=== PATIENT | female | born 1950 | race Caucasian/White ===

== ENCOUNTER 2018-02-19 06:02 | Inpatient (IN) ==
[2018-02-19] MEDS ORDERED: Metoprolol Tartrate 25 MG Tablet PO ONE (06:53)
[2018-02-19] MEDS ORDERED: Chlorhexidine Gluconate 2% 1 Pack (2 Cloths) TOPICAL ONE (06:53)
[2018-02-19] MEDS ORDERED: Sodium Chlor 0.9% Inj 500 ML IV.SIG SCH (07:00)
--- NOTE | 2018-02-19 10:21 | P.HPVS ---
History of Present Illness Chief Complaint: LEFT foot rest pain, PAD History of Present Illness: 67 yo female with L LE rest pain and PAD. Presents for groin reconstruction and angiogram. No changes in health that would preclude OR today. - Inpatient Certification If this patient has been admitted as an Inpatient: I certify that the inpatient services were ordered in accordance with Medicare regulations governing the order. This includes certification that hospital inpatient services are reasonable and necessary and in the case of services not specified as inpatient-only under 42 CFR 419.22(n), that they are appropriately provided as inpatient services in accordance to with the 2-midnight benchmark under 43 CFR 412.3(e) Estimated Total Length of Stay (Days): 3 Plans for Post Hospital Care: SNF Review of Systems Constitutional: Denies chills, Denies fever(s) PMFSH - History History Provided By: Patient, Medical Record - Medical History Medical History: Medical History (Last Reviewed 02/19/18 @ 10:19 by Jason Boone MD) Cataract Embolism Emphysema of lung Insomnia Psoriasis Arthritis At maximum risk for fall COPD (chronic obstructive pulmonary disease) GERD (gastroesophageal reflux disease) History of heart attack History of uterine cancer Hx of completed stroke Hypokalemia Hypothyroid Incontinence of urine Major depressive disorder PVD (peripheral vascular disease) Spastic hemiplegia and hemiparesis Surgical history unknown Unspecified convulsions Urticaria - Surgical History Surgical History: Surgical History (Last Reviewed 02/19/18 @ 10:19 by Jason Boone MD) H/O carotid endarterectomy Hx of vascular surgery - Tobacco History Second Hand Smoke Exposure: Yes Tobacco Use In Past 30 Days: Yes Smoking Status: Current every day smoker Tobacco Type: Cigarettes - Alcohol History How Often Do You Have a Drink Containing Alcohol: Never - Substance Use History Substance History: No History of Abuse - Travel History Recent Travel in the [place] Within the Last 8 Weeks: No Recent Travel Out of the Country Within the Last 8 Weeks: No Medications and Allergies Active Medications: Active Medications Lactated Ringer's (Lr 1000 Ml Inj) 1,000 mls @ 30 mls/hr IV.SIG .Q24H C[facility] Stop: 02/20/18 06:59 Last Admin: 02/19/18 07:10 Dose: 30 mls/hr Sodium Chloride (Ns Inj) 500 mls @ 30 mls/hr IV.SIG .Q10H C[facility] Allergies Allergy/AdvReac Type Severity Reaction Status Date / Time erythromycin base Allergy Hives Verified 02/19/18 06:57 Macrolide Antibiotics Allergy Hives Verified 02/19/18 06:57 Penicillins Allergy Hives Verified 02/19/18 06:57 Sulfa (Sulfonamide Allergy Hives Verified 02/19/18 06:57 Antibiotics) codeine AdvReac Nausea Verified 02/19/18 06:57 Home Medications Medication Instructions Recorded Confirmed Type acetaminophen [Tylenol] 650 mg PO Q4H PRN 02/13/18 02/19/18 History atorvastatin 20 mg PO DAILY 02/13/18 02/19/18 History calcium carbonate-vitamin D3 1 tab PO BID 02/13/18 02/19/18 History [Calcium 500 + D] citalopram [Celexa] 10 mg PO DAILY 02/13/18 02/19/18 History clopidogrel [Plavix] 75 mg PO DAILY 02/13/18 02/19/18 History diphenhydramine HCl [Benadryl Itch 1 applic TOPICAL TID-QID PRN 02/13/18 History Stopping] fenofibrate micronized 200 mg PO DAILY 02/13/18 02/19/18 History furosemide 20 mg PO DAILY 02/13/18 02/19/18 History gabapentin 300 mg PO BID 02/13/18 02/19/18 History hydrocodone-acetaminophen 1 tab PO Q8HR PRN 02/13/18 02/19/18 History levetiracetam 500 mg PO BID 02/13/18 02/19/18 History levothyroxine 25 mcg PO DAILY 02/13/18 02/19/18 History loratadine 10 mg PO DAILY 02/13/18 02/19/18 History lorazepam 0.5 mg PO BID PRN 02/13/18 02/19/18 History polyethylene glycol 3350 [Miralax] 17 g PO DAILY 02/13/18 02/19/18 History potassium chloride 10 meq PO DAILY 02/13/18 02/19/18 History tizanidine 4 mg PO BID 02/13/18 02/19/18 History zolpidem [Ambien] 5 mg PO HS 02/13/18 02/19/18 History bisacodyl 5 mg PO DAILY 02/19/18 02/19/18 History calcipotriene 1 applic TOPICAL DAILY 02/19/18 02/19/18 History clobetasol 1 applic TOPICAL BID PRN 02/19/18 02/19/18 History Physical Exam Vital Signs / I&O: Vital Signs 02/19/18 07:00 Temperature 98.4 F Pulse Rate 56 L Respiratory Rate 18 Blood Pressure 127/53 L Intake & Output 02/18/18 02/19/18 02/19/18 18:59 06:59 18:59 Weight 67.1 kg Other: Weight On Admission 67.1 kg Neuro: alert, mild agitation because hungry HEENT: NC/AT Neck: no JVD Heart: reg rate Lungs: clear Abdomen: NT Vascular: L groin without ecchymoses Laboratory Results - last 24 hr 02/19/18 06:40 Blood Type A Positive Blood Type Recheck Required Antibody Screen Negative Hct 44 plt 305 cr 1.0 INR 1.0 UA negative Caprini VTE Risk Assessment Caprini VTE Risk Assessment: Moderate/High Risk (score >= 2) (will give intraop heparin and post-op prophylactic heparin) Caprini Risk Assessment Model: Point Value = 1 Point Value = 2 Point Value = 3 Point Value = 5 Age 41-60 Minor surgery BMI > 25 kg/m2 Swollen legs Varicose veins or History of unexplained or recurrent spontaneous Oral contraceptives or hormone replacement Sepsis (< 1 month) Serious lung disease, including pneumonia (< 1 month) Abnormal pulmonary function Acute myocardial infarction Congestive heart failure (< 1 month) History of inflammatory bowel disease Medical patient at bed rest Age 61-74 Arthroscopic surgery Major open surgery (> 45 min) Laparoscopic surgery (> 45 min) Malignancy Confined to bed (> 72 hours) Immobilizing plaster cast Central venous access Age >= 75 History of VTE Family history of VTE Factor V Leiden Prothrombin [id number] Lupus anticoagulant Anticardiolipin antibodies Elevated serum homocysteine Heparin-induced thrombocytopenia Other congenital or acquired thrombophilia Stroke (< 1 month) Elective arthroplasty Hip, pelvis, or leg fracture Acute spinal cord injury (< 1 month) Prophylaxis Regimen: Total Risk Factor Score Risk Level Prophylaxis Regimen 0-1 Low Early ambulation 2 Moderate Order ONE of the following: *Sequential Compression Device (SCD) *Heparin 5000 units SQ BID 3-4 Higher Order ONE of the following medications: *Heparin 5000 units SQ TID *Enoxaparin/Lovenox 40 mg SQ daily (WT < 150 kg, CrCl > 30 mL/min) *Enoxaparin/Lovenox 30 mg SQ daily (WT < 150 kg, CrCl > 10-29 mL/min) *Enoxaparin/Lovenox 30 mg SQ BID (WT < 150 kg, CrCl > 30 mL/min) AND/OR *Sequential Compression Device (SCD) 5 or more Highest Order ONE of the following medications: *Heparin 5000 units SQ TID (Preferred with Epidurals) *Enoxaparin/Lovenox 40 mg SQ daily (WT < 150 kg, CrCl > 30 mL/min) *Enoxaparin/Lovenox 30 mg SQ daily (WT < 150 kg, CrCl > 10-29 mL/min) *Enoxaparin/Lovenox 30 mg SQ BID (WT < 150 kg, CrCl > 30 mL/min) AND *Sequential Compression Device (SCD) Assessment and Plan - Assessment (1) PAD (peripheral artery disease) Code(s): I73.9 - Peripheral vascular disease, unspecified Status: Acute - Plan LEFT groin reconstruction and angiogram To OR Daughter coming later today: [phone]
[2018-02-19] MEDS ORDERED: Heparin 10,000 UNITS/10 ML Vial (for IV use) ONE (10:23)
[2018-02-19] MEDS ORDERED: Bupivacaine PF 0.5% Inj 10 ML Vial ONE (10:23)
[2018-02-19] MEDS ORDERED: Protamine Sulfate Inj 50 MG/5 ML Vial ONE (10:23)
[2018-02-19] MEDS ORDERED: Heparin/NS PF Inj 500 ML ONE (10:24)
[2018-02-19] MEDS ORDERED: Phenylephrine/NS 1000 MCG/10ML Syringe IV.PUSH ONE (10:38)
[2018-02-19] MEDS ORDERED: Lidocaine PF 1% Inj 5 ML Syringe OTHER ONE (10:38)
[2018-02-19] MEDS ORDERED: Glycopyrrolate Inj 1 MG/5 ML Syringe IV.PUSH ONE (10:38)
[2018-02-19] MEDS ORDERED: Neostigmine Inj 5 MG/5 ML Syringe IV.PUSH ONE (10:38)
[2018-02-19] MEDS ORDERED: Thrombin Topical 20,000 UNIT Spray Kit TOPICAL ONE (11:00)
[2018-02-19] MEDS ORDERED: Bisacodyl 10 MG Supp RECTAL PRN (13:36)
--- NOTE | 2018-02-19 13:36 | P.OP ---
- Preoperative Diagnosis (1) PAD (peripheral artery disease) - Postoperative Diagnosis (1) PAD (peripheral artery disease) Date of procedure: 02/19/18 Procedure: 1. L ilioprofunda bypass 2. L BORDER PATROL AGENT-SFA bypass Implants: 6mm Dacron Anesthesia: GETA Surgeon: Jason Boone MD [employer] Driver: Jason Hays Estimated blood loss (mL): 150 IV fluids (mL): 2,000 Urine output (mL): 325 Pathology: none sent Operation and Findings: very small arteries strong signals in DP at end of case
[2018-02-19] MEDS ORDERED: CLOBETASOL 0.025% TOPICAL PRN (14:30)
[2018-02-19] MEDS ORDERED: diphenhydrAMINE 2%/Zinc Cream 30 GM Tube TOPICAL PRN (14:30)
[2018-02-19] MEDS ORDERED: fentaNYL Citrate Inj 100 MCG/2 ML Ampul ONE ×2 (14:36)
--- NOTE | 2018-02-19 14:52 | MP ---
cc: Jason Boone MD DATE OF OPERATION: 02/19/2018 PREOPERATIVE DIAGNOSIS: Left lower extremity rest pain and peripheral screws. POSTOPERATIVE DIAGNOSIS: Left lower extremity rest pain and peripheral screws. PROCEDURE PERFORMED: 1. Ilioprofunda bypass with 6 mm Dacron. 2. Common femoral to superficial femoral artery bypass with 6 mm Dacron. SURGEON: Jason Boone MD ANESTHESIA: General. INDICATIONS FOR PROCEDURE: Ms. Archer is a 67-year-old lady with ischemic rest pain and diminished ALEJO's. She was taken to the operating room for groin reconstruction. DESCRIPTION OF PROCEDURE: Informed consent was obtained from the patient. She was taken to the operating room and placed supine on the operating table. An appropriate timeout was taken to ensure the patient's identity, the operative site and planned procedure. A gram of vancomycin prior to skin incision and will be discontinued after single preoperative dose. Vancomycin was chosen because of the patient's PENICILLIN ALLERGY. Everyone in the room agreed with timeout and we proceeded. She was prepped from her nipples to toes. A vertical incision was made in the patient's left groin and carried down through subcutaneous tissue with electrocautery. The inguinal ligament was divided and the retractors were set out. The external iliac artery was circumferentially dissected and a vessel loop was placed around this. The profunda was dissected free. The entire common femoral artery and the SFA. The patient was heparinized with 6000 units of IV heparin. Throughout the remainder of the case. The ACT was confirmed to be greater than 250. Proximal control of the external iliac artery and distal control of the profunda and SFA were obtained. The common femoral artery and its entire bifurcation were resected. The external iliac artery was endarterectomized and spatulated and a 6 mm Dacron was spatulated and sewn end-to-end with running 6-0 Prolene suture. The patient was felt to be hemostatic. A clamp was placed on the graft. The profunda was spatulated, endarterectomized and the anastomosis performed with profunda with running 6-0 Prolene suture. The clamps released and there was a nice palpable pulse in the profunda. Clamps were applied on the Dacron and the longitudinal graftotomy was made with an 11 blade, extended with [place] scissors. The 6 mm Dacron second piece was then spatulated and sewn end-to-side with running 5-0 Prolene suture. At the completion, it was flushed and noted to be hemostatic. The clamp was then placed in the jump graft and it was spatulated distally and sewn end-to-end to the superficial femoral artery with running 6-0 Prolene suture. At the completion, it was flushed, found to be hemostatic. All 4 anastomoses were hemostatic and there was a strong Doppler signal in the foot. The heparin was reversed with protamine. The wound was infiltrated with Marcaine. The wound was made hemostatic and closed with 2-0 Polysorb, 3-0 Polysorb and 4-0 Monocryl. Sponge and needle counts were correct at the end of the case. I was present and scrubbed for the entire procedure. MD DOMINGA Spencer/ines/cassidy , 01:43 PM , 01:51 PM CHRIS
[2018-02-19] MEDS ORDERED: *morphine SULFATE 4 MG/ML PERIprocedure ONLY ONE (15:04)
--- NOTE | 2018-02-19 18:06 | XR ---
EXAM DATE: 02/19/2018 5:59 PM EST AGE/SEX: 67 years / Female INDICATIONS: Short of breath post operation. CLINICAL DATA: This is the patient's initial encounter. Patient reports that signs and symptoms have been present for 1 day and indicates a pain score of 0/10. MEDICAL/SURGICAL HISTORY: Cardiovascular disease. None. [place] [facility] [place]. . FINDINGS: Mild prominence of the interstitium. Trace basilar atelectasis. No pleural effusion demonstrated. No pneumothorax. Heart size stable upper limits of normal. CONCLUSION: Trace pulmonary edema and basilar atelectasis. Electronically signed by: Rico Dunbar MD 02/19/2018 6:04 PM EST
[2018-02-19] MEDS: Gabapentin 300 MG Capsule PO SCH (20:09)
[2018-02-19] MEDS: Zolpidem Tartrate 5 MG Tablet PO SCH (20:09)
[2018-02-19] MEDS: Calcium/Vitamin D 250/125 MG Tablet PO SCH (20:09)
[2018-02-19] MEDS: Senna/Docusate Sodium 8.6/50 MG Tablet PO SCH (20:09)
[2018-02-19] MEDS: Famotidine 20 MG Tablet PO SCH (20:10)
[2018-02-19] MEDS: levETIRAcetam 500 MG Tablet PO SCH (20:10)
[2018-02-19 21:00] LABS: Baso % (Auto) 0.1 % (0.0-2.0); Hematocrit 38.6 % (35.0-46.0); Hemoglobin 12.7 gm/dL (11.6-15.3); Lymph # (Auto) 0.6 th/mm3 (1.0-4.8); Lymph % (Auto) 7.7 % (9.0-44.0); Mean Corpuscular HGB Conc 32.9 % (32.0-36.0); Mean Corpuscular Volume 91.2 fL (80.0-100.0); Mean Platelet Volume 7.9 fL (7.0-11.0); Mono # (Auto) 0.2 th/mm3 (0.0-0.9); Mono % (Auto) 2.3 % (0.0-8.0); Neut # (Auto) 7.5 th/mm3 (1.8-7.7); Neut % (Auto) 89.9 % (16.0-70.0); Platelet Count 252 th/mm3 (150-450); Red Blood Count 4.23 mil/mm3 (4.00-5.30); Red Cell Distribution Width 14.8 % (11.6-17.2); White Blood Count 8.4 th/mm3 (4.0-11.0)
[2018-02-19 21:23] LABS: Albumin 3.2 g/dL (3.4-5.0); Anion Gap 9 meq/L (5-15); Aspartate Aminotransferase 21 U/L (15-37); Blood Urea Nitrogen 18 mg/dL (7-18); Calcium 7.6 mg/dL (8.5-10.1); Carbon Dioxide 24.2 meq/L (21.0-32.0); Chloride 108 meq/L (98-107); Glomerular Filtration Rate 46 mL/min (>89); Glucose,Random 137 mg/dL (74-106); Magnesium 1.7 mg/dL (1.5-2.5); Potassium 3.6 meq/L (3.5-5.1); Sodium 141 meq/L (136-145)
[2018-02-19 21:24] LABS: Alanine Aminotransferase 21 U/L (10-53); Phosphorus 3.1 mg/dL (2.5-4.9)
[2018-02-19 21:26] LABS: Alkaline Phosphatase 34 U/L (45-117); Total Protein 6.3 g/dL (6.4-8.2)
--- NOTE | 2018-02-19 21:42 | MB ---
cc: Kota Hebert MD DATE: 02/19/2018 HISTORY OF PRESENT ILLNESS: The patient is a 67-year-old female with a past medical history of peripheral vascular disease, COPD, GERD, coronary artery disease, uterine cancer, CVA, hypothyroidism, who was admitted to [facility] today for groin reconstruction and angiogram by Dr. Boone. She underwent left OUTSIDE SALESMAN to SFA bypass and left ilioprofunda bypass this afternoon. In the OR, the patient received 2 liters of crystalloids, had 325 mL of urine output and her EBL was 150 mL. Critical care medicine was consulted for critical care management. The patient received morphine 3 mg this afternoon and her current blood pressure is 93/70. She states that her blood pressure normally runs low. She is currently on 6 liters simple mask with a saturation of 90% to 93%. A chest x-ray was obtained postop which showed trace pulmonary edema and basilar atelectasis. She denies any chest pain, shortness of breath or edema of the lower extremities. In addition, the patient denies any nausea, vomiting or abdominal pain. PAST MEDICAL HISTORY: Significant for peripheral vascular disease, major depressive disorder, hypothyroidism, CVA, uterine cancer, coronary artery disease, GERD, COPD, psoriasis, questionable pulmonary embolism, cataracts. PAST SURGICAL HISTORY: Previous carotid endarterectomy, previous vascular surgeries. ALLERGIES: ERYTHROMYCIN, MACROLIDE, PENICILLIN, CODEINE, SULFA. SOCIAL HISTORY: Active smoker, nondrinker. FAMILY HISTORY: Noncontributory to present illness. CURRENT MEDICATIONS: Reviewed. REVIEW OF SYSTEMS: As per HPI. The rest of the review of systems is unremarkable. PHYSICAL EXAMINATION: GENERAL: A 67-year-old female lying in bed, in no acute distress, on 6 liters simple mask. VITAL SIGNS: Temperature 97.5, pulse 70, blood pressure 93/70, saturation 93% on 6 liters simple mask. HEENT: Atraumatic, normocephalic. Pupils are equal, round and reactive to light and accommodation. Extraocular muscles intact. Conjunctivae pink. Nonicteric sclerae. Oral mucosa within normal. NECK: Supple. No JVD, adenopathy or thyromegaly. Trachea midline. CARDIOVASCULAR: Regular rate and rhythm. Normal S1, S2. No murmurs, rubs or gallops noted. PULMONARY: Bilateral equal air entry. No rales or wheezing. ABDOMEN: Soft, nontender. No distention. Positive bowel sounds. EXTREMITIES: No cyanosis, clubbing, edema. NEUROLOGIC: No focal sensory deficit. LABORATORY DATA: None available. RADIOGRAPHIC STUDIES: A chest x-ray showed a trace pulmonary edema and basilar atelectasis. IMPRESSION: 1. Respiratory insufficiency. 2. Peripheral arterial disease. 3. Status post left ilioprofunda bypass and left common femoral artery to superficial femoral artery bypass. 4. Chronic obstructive pulmonary disease. 5. Coronary artery disease. 6. Hypothyroidism. 7. Obesity. 8. History of cerebrovascular accident. RECOMMENDATIONS: 1. Monitor neuro status closely and avoid any sedatives. 2. Wean down oxygen as tolerated and maintain sats above 92%. 3. Place on bronchodilators in the form of DuoNeb q.4 plus q.2 p.r.n. for shortness of breath. 4. Incentive spirometry q.1 hour while awake. 5. Monitor heart rate and blood pressure closely and maintain MAP greater than 65 mmHg. 6. Pain control. She is on Dilaudid 2 mg p.o. q.4 hours p.r.n. 7. Continue with aspirin and Lipitor. 8. Plavix starting tomorrow as ordered. 9. Monitor renal function, I's and O's and electrolyte replacement as needed. Continue with diuretics. She is currently on Lasix 20 mg daily. 10. Discontinue IV fluids. 11. Monitor for signs of infection, which include fever and WBC. 12. The patient started on a cardiac diet. Continue with Pepcid 20 mg b.i.d. 13. Sliding scale insulin if needed for glycemic control. In addition, she is on Synthroid 25 mcg daily. We will obtain a baseline TSH level. 14. GI and DVT prophylaxis. The patient is on Pepcid and Lovenox 30 mg subcutaneous daily to start tomorrow. 15. We will obtain basic labs now, which include CBC and CMP. 16. Further recommendations will be based on hospital course. MD MADINA Tavares/marcia , 07:14 PM , 07:25 PM
[2018-02-20 04:26] LABS: Hematocrit 34.2 % (35.0-46.0); Hemoglobin 11.3 gm/dL (11.6-15.3); Mean Corpuscular HGB Conc 33.2 % (32.0-36.0); Mean Corpuscular Hemoglobin 30.7 pg (27.0-34.0); Mean Corpuscular Volume 92.6 fL (80.0-100.0); Mean Platelet Volume 7.8 fL (7.0-11.0); Platelet Count 240 th/mm3 (150-450); Red Blood Count 3.69 mil/mm3 (4.00-5.30); Red Cell Distribution Width 14.5 % (11.6-17.2); White Blood Count 7.1 th/mm3 (4.0-11.0)
[2018-02-20] MEDS: Morphine Inj 4 MG/ML Vial IV.PUSH PRN (04:49)
[2018-02-20 04:53] LABS: Calcium 7.7 mg/dL (8.5-10.1); Carbon Dioxide 24.3 meq/L (21.0-32.0); Potassium 4.1 meq/L (3.5-5.1)
--- NOTE | 2018-02-20 07:36 | P.PNVS ---
Subjective Post Op Day #: 1 Procedure: L groin reconstruction Subjective/Hospital Course: c/o local groin pain and burning in foot. Otherwise ok no SOB Objective Vital Signs / I&O: Vital Signs 02/19/18 14:26 02/19/18 14:30 02/19/18 14:45 Temperature 97.3 F L 96.7 F L 96.7 F L Pulse Rate 84 73 65 Respiratory Rate 14 14 12 Blood Pressure 127/85 122/80 117/69 Pulse Oximetry 89 L 89 L 89 L 02/19/18 15:00 02/19/18 15:15 02/19/18 15:30 Temperature 97.5 F L 97.5 F L 97.5 F L Pulse Rate 64 65 63 Respiratory Rate 14 14 14 Blood Pressure 102/67 90/64 L 85/63 L Pulse Oximetry 89 L 89 L 91 L 02/19/18 15:45 02/19/18 16:00 02/19/18 16:15 Temperature 97.5 F L 97.5 F L 97.5 F L Pulse Rate 64 71 70 Respiratory Rate 14 14 14 Blood Pressure 76/57 L 87/50 L 82/60 L Pulse Oximetry 89 L 92 L 90 L 02/19/18 16:30 02/19/18 16:45 02/19/18 17:00 Temperature 97.5 F L 97.5 F L 97.5 F L Pulse Rate 74 71 69 Respiratory Rate 14 14 14 Blood Pressure 84/62 L 91/66 L 81/62 L Pulse Oximetry 93 L 92 L 90 L 02/19/18 17:15 02/19/18 17:30 02/19/18 17:45 Temperature 97.5 F L 97.5 F L 97.5 F L Pulse Rate 71 70 70 Respiratory Rate 14 14 14 Blood Pressure 82/64 L 90/66 L 93/68 L Pulse Oximetry 92 L 89 L 89 L 02/19/18 18:00 02/19/18 18:15 02/19/18 18:44 Temperature 97.5 F L 97.5 F L 96.7 F L Pulse Rate 71 73 72 Respiratory Rate 14 12 12 Blood Pressure 93/66 L 93/70 L 86/58 L Pulse Oximetry 94 L 89 L 93 L 02/19/18 19:00 02/19/18 20:00 02/19/18 21:23 Temperature 98.2 F Pulse Rate 68 70 71 Respiratory Rate 16 18 Blood Pressure 82/64 L Pulse Oximetry 91 L 95 02/19/18 23:00 02/19/18 23:33 02/20/18 00:52 Temperature 98.0 F Pulse Rate 73 72 68 Respiratory Rate 15 18 Blood Pressure 74/54 L Pulse Oximetry 95 02/20/18 02:25 02/20/18 03:00 02/20/18 05:03 Temperature 97.9 F Pulse Rate 69 Respiratory Rate 16 16 Blood Pressure 107/56 L Pulse Oximetry 95 98 02/20/18 07:06 02/20/18 07:07 02/20/18 07:10 Temperature 98.5 F Pulse Rate 76 Respiratory Rate 16 Blood Pressure 120/63 Pulse Oximetry 99 97 96 02/20/18 07:18 Temperature Pulse Rate 74 Respiratory Rate Blood Pressure Pulse Oximetry Intake & Output 02/19/18 02/20/18 02/20/18 18:59 06:59 18:59 Intake Total 3500 / 3500 200 / 200 Output Total 575 / 575 300 / 300 Balance 2925 / 2925 -100 / -100 Weight 73.3 kg Intake: IV 1500 / 1500 Heparin/NS PF Inj 500 ML @ 0 500 / 500 mls/hr .ROUTE .STK-MED ONE Rx#: [id number] LR 1000 mL Inj 1,000 ML @ 30 1000 / 1000 mls/hr IV.SIG .Q24H [facility] Rx#: [id number] Oral 200 / 200 Anesthesia Amount 2000 / 2000 Output: Estimated Blood Loss 150 / 150 Urine Amount (Catheter) 425 / 425 300 / 300 Indwelling Urethral Catheter 425 / 425 300 / 300 Other: Mode Setting Left Groin Intermittent Continuous Continuous Exam: resting comfortably in bed no distress L groin Prevena in place Strong DP signals Laboratory Results - last 24 hr 02/19/18 02/19/18 02/20/18 20:21 20:21 04:03 WBC 8.4 7.1 RBC 4.23 3.69 L Hgb 12.7 11.3 L Hct 38.6 34.2 L MCV 91.2 92.6 MCH 30.0 30.7 MCHC 32.9 33.2 RDW 14.8 14.5 Plt Count 252 240 MPV 7.9 7.8 Neut % (Auto) 89.9 H Lymph % (Auto) 7.7 L Elmore % (Auto) 2.3 Eos % (Auto) 0.0 Baso % (Auto) 0.1 Neut # (Auto) 7.5 Lymph # (Auto) 0.6 L [place] # (Auto) 0.2 Eos # (Auto) 0.0 Baso # (Auto) 0.0 WBC Differential . Differential Comment Auto diff final Sodium 141 Potassium 3.6 Chloride 108 H Carbon Dioxide 24.2 Anion Gap 9 BUN 18 Creatinine 1.17 H Estimated GFR 46 L Random Glucose 137 H Calcium 7.6 L Phosphorus 3.1 Magnesium 1.7 Total Bilirubin 0.3 AST 21 ALT 21 Alkaline Phosphatase 34 L Total Protein 6.3 L Albumin 3.2 L TSH 02/20/18 02/20/18 04:03 04:03 WBC RBC Hgb Hct MCV MCH MCHC RDW Plt Count MPV Neut % (Auto) Lymph % (Auto) [place] % (Auto) Eos % (Auto) Baso % (Auto) Neut # (Auto) Lymph # (Auto) El[place] # (Auto) Eos # (Auto) Baso # (Auto) WBC Differential Differential Comment Sodium 139 Potassium 4.1 Chloride 110 H Carbon Dioxide 24.3 Anion Gap 5 BUN 18 Creatinine 1.11 H Estimated GFR 49 L Random Glucose 135 H Calcium 7.7 L Phosphorus Magnesium Total Bilirubin AST ALT Alkaline Phosphatase Total Protein Albumin TSH 0.720 Assessment and Plan - Assessment (1) PAD (peripheral artery disease) Code(s): I73.9 - Peripheral vascular disease, unspecified Status: Acute - Plan POD#1 s/p L groin reconstruction, looks good, pain controlled 1. Hanson out tomorrow (POD#1) 2. HL IVF and encourage po intake 3. OOB TC / PT ordered 4. resume home meds 5. Transfer to [facility] on tele Discharge Plannin-3 days to rehab
[2018-02-20] MEDS: Calcium/Vitamin D 250/125 MG Tablet PO SCH ×2 (08:20→20:01)
[2018-02-20] MEDS: Famotidine 20 MG Tablet PO SCH ×2 (08:20→20:02)
[2018-02-20] MEDS: Citalopram 20 MG Tablet PO SCH (08:20)
[2018-02-20] MEDS: Potassium Chloride 10 MEQ ER Capsule PO SCH (08:21)
[2018-02-20] MEDS: levETIRAcetam 500 MG Tablet PO SCH ×2 (08:21→21:20)
[2018-02-20] MEDS: Furosemide 20 MG Tablet PO SCH (08:21)
[2018-02-20] MEDS: Loratadine 10 MG Tablet PO SCH (08:22)
[2018-02-20] MEDS: Fenofibrate 145 MG Tablet PO SCH (08:22)
[2018-02-20] MEDS: Senna/Docusate Sodium 8.6/50 MG Tablet PO SCH ×2 (08:22→20:02)
[2018-02-20] MEDS: Gabapentin 300 MG Capsule PO SCH ×2 (08:22→20:01)
[2018-02-20] MEDS: Polyethylene Glycol 3350 17 GM Packet PO SCH (12:48)
[2018-02-20] MEDS: Enoxaparin Inj 30 MG/0.3 ML Syringe SQ SCH (14:42)
[2018-02-20] MEDS: LORazepam 0.5 MG Tablet PO PRN (20:01)
[2018-02-20] MEDS: Zolpidem Tartrate 5 MG Tablet PO SCH (20:02)
--- NOTE | 2018-02-21 07:45 | P.PNVS ---
Subjective Post Op Day #: 2 Procedure: L groin reconstruction Subjective/Hospital Course: doing well still c/o pain and burning in L groin but otherwise ok Hanson removed this morning Objective Vital Signs / I&O: Vital Signs 02/20/18 09:31 02/20/18 09:36 02/20/18 09:37 Temperature Pulse Rate 75 71 Respiratory Rate 22 Blood Pressure Pulse Oximetry 95 02/20/18 10:47 02/20/18 11:00 02/20/18 11:09 Temperature 99.7 F H Pulse Rate 78 76 Respiratory Rate 16 Blood Pressure 108/52 L Pulse Oximetry 92 L 92 L 02/20/18 11:14 02/20/18 12:00 02/20/18 13:00 Temperature Pulse Rate 89 75 89 Respiratory Rate Blood Pressure Pulse Oximetry 02/20/18 14:00 02/20/18 15:00 02/20/18 16:00 Temperature 98.9 F Pulse Rate 75 76 80 Respiratory Rate 16 Blood Pressure 110/58 L Pulse Oximetry 98 02/20/18 16:29 02/20/18 17:00 02/20/18 18:00 Temperature Pulse Rate 80 72 80 Respiratory Rate 20 Blood Pressure Pulse Oximetry 02/20/18 19:00 02/20/18 20:00 02/20/18 20:10 Temperature 98.9 F Pulse Rate 76 77 94 H Respiratory Rate 18 Blood Pressure 110/58 L Pulse Oximetry 96 93 L 02/20/18 21:00 02/20/18 22:00 02/20/18 23:00 Temperature 98.7 F Pulse Rate 78 78 73 Respiratory Rate Blood Pressure 100/51 L Pulse Oximetry 94 L 02/21/18 00:00 02/21/18 00:59 02/21/18 02:00 Temperature Pulse Rate 78 70 78 Respiratory Rate Blood Pressure Pulse Oximetry 02/21/18 03:00 02/21/18 04:00 02/21/18 05:00 Temperature 100.3 F H Pulse Rate 73 73 71 Respiratory Rate 16 Blood Pressure 99/53 L Pulse Oximetry 94 L 02/21/18 05:49 Temperature Pulse Rate 71 Respiratory Rate Blood Pressure Pulse Oximetry Intake & Output 02/20/18 02/21/18 02/21/18 18:59 06:59 18:59 Intake Total 1480 / 1480 480 / 480 Output Total 150 / 150 950 / 950 Balance 1330 / 1330 -470 / -470 Weight 72.5 kg Intake: IV 1000 / 1000 Oral 480 / 480 480 / 480 Output: Estimated Blood Loss 150 / 150 Urine Amount (Catheter) 950 / 950 Indwelling Urethral Catheter 950 / 950 Other: Mode Setting Left Groin Continuous Continuous Date of Last Bowel Movement 02/18/18 Exam: resting comfortably in bed L groin soft, non tender Strong DP signal and foot warm Assessment and Plan - Assessment (1) PAD (peripheral artery disease) Code(s): I73.9 - Peripheral vascular disease, unspecified Status: Acute - Plan POD#2 s/p L groin reconstruction, looks good, pain controlled 1. Hanson out this morning; watch UOP 2. HL IVF and encourage po intake 3. OOB TC / PT ordered 4. resume home meds Discharge Planning: likely tomorrow (POD#3) to rehab
[2018-02-21] MEDS ORDERED: Sod Chloride 0.9% Inj 1,000 ML IV.SIG ONE (08:15)
[2018-02-21] MEDS: levETIRAcetam 500 MG Tablet PO SCH ×2 (08:38→20:16)
[2018-02-21] MEDS: Furosemide 20 MG Tablet PO SCH (08:39)
[2018-02-21] MEDS: Loratadine 10 MG Tablet PO SCH (08:40)
[2018-02-21] MEDS: Senna/Docusate Sodium 8.6/50 MG Tablet PO SCH ×2 (08:40→20:15)
[2018-02-21] MEDS: Fenofibrate 145 MG Tablet PO SCH (08:40)
[2018-02-21] MEDS: Gabapentin 300 MG Capsule PO SCH ×2 (08:40→20:16)
[2018-02-21] MEDS: Polyethylene Glycol 3350 17 GM Packet PO SCH (08:41)
[2018-02-21] MEDS: Calcium/Vitamin D 250/125 MG Tablet PO SCH ×2 (08:42→20:16)
[2018-02-21] MEDS: Famotidine 20 MG Tablet PO SCH ×2 (08:45→20:16)
[2018-02-21] MEDS: Potassium Chloride 10 MEQ ER Capsule PO SCH (08:45)
[2018-02-21] MEDS: Citalopram 20 MG Tablet PO SCH (08:45)
[2018-02-21] MEDS: Acetaminophen 325 MG Tablet PO PRN ×2 (13:31→17:52)
[2018-02-21] MEDS: Enoxaparin Inj 30 MG/0.3 ML Syringe SQ SCH (13:39)
[2018-02-21] MEDS: Zolpidem Tartrate 5 MG Tablet PO SCH (20:18)
[2018-02-22] MEDS: Morphine Inj 4 MG/ML Vial IV.PUSH PRN (00:55)
[2018-02-22] MEDS: LORazepam 0.5 MG Tablet PO PRN ×2 (06:12→13:54)
[2018-02-22 08:39] VITALS: O2SAT 93
[2018-02-22] MEDS: Gabapentin 300 MG Capsule PO SCH (08:55)
[2018-02-22] MEDS: Fenofibrate 145 MG Tablet PO SCH (08:55)
[2018-02-22] MEDS: Senna/Docusate Sodium 8.6/50 MG Tablet PO SCH (08:55)
[2018-02-22] MEDS: levETIRAcetam 500 MG Tablet PO SCH (08:56)
[2018-02-22] MEDS: Calcium/Vitamin D 250/125 MG Tablet PO SCH (08:56)
[2018-02-22] MEDS: Polyethylene Glycol 3350 17 GM Packet PO SCH (08:57)
[2018-02-22] MEDS: Potassium Chloride 10 MEQ ER Capsule PO SCH (09:00)
[2018-02-22] MEDS: Citalopram 20 MG Tablet PO SCH (09:00)
[2018-02-22] MEDS: Famotidine 20 MG Tablet PO SCH (09:01)
--- NOTE | 2018-02-22 10:37 | P.PNVS ---
Subjective Post Op Day #: 3 Procedure: L groin reconstruction Subjective/Hospital Course: POD 3 Continues to be doing well Pt looks good and is w/o chest/abdominal/back pain/weakness/dizziness Pain controlled Voiding w/o difficulty LE warm Pt c/o L groin discomfort- Prevena wound vac intact w/o swelling or hematoma Pt w/ asymptomatic hypotension- reports hx of Objective Vital Signs / I&O: Vital Signs 02/21/18 11:00 02/21/18 12:00 02/21/18 12:10 Temperature 98.2 F Pulse Rate 83 76 70 Respiratory Rate 20 16 Blood Pressure 79/48 L Pulse Oximetry 94 L 02/21/18 13:00 02/21/18 13:20 02/21/18 14:00 Temperature Pulse Rate 73 75 Respiratory Rate Blood Pressure 101/60 Pulse Oximetry 02/21/18 14:21 02/21/18 14:25 02/21/18 15:00 Temperature 98.1 F Pulse Rate 84 80 Respiratory Rate 20 Blood Pressure 81/50 L Pulse Oximetry 94 L 94 L 02/21/18 15:36 02/21/18 16:00 02/21/18 16:35 Temperature Pulse Rate 95 H 73 Respiratory Rate 14 Blood Pressure 90/60 L Pulse Oximetry 02/21/18 17:00 02/21/18 18:00 02/21/18 18:25 Temperature Pulse Rate 73 77 Respiratory Rate 16 Blood Pressure Pulse Oximetry 02/21/18 19:00 02/21/18 20:00 02/21/18 20:31 Temperature 99.0 F Pulse Rate 74 80 74 Respiratory Rate 18 18 Blood Pressure 96/62 L Pulse Oximetry 92 L 02/21/18 20:34 02/21/18 20:46 02/21/18 21:00 Temperature Pulse Rate 74 Respiratory Rate 16 Blood Pressure Pulse Oximetry 95 02/21/18 22:00 02/21/18 23:00 02/22/18 00:00 Temperature 99.7 F H Pulse Rate 70 68 68 Respiratory Rate 16 Blood Pressure 92/54 L Pulse Oximetry 95 02/22/18 00:57 02/22/18 01:00 02/22/18 01:55 Temperature Pulse Rate 60 Respiratory Rate 16 16 Blood Pressure Pulse Oximetry 02/22/18 02:00 02/22/18 03:00 02/22/18 03:41 Temperature 98.7 F Pulse Rate 61 65 65 Respiratory Rate 20 18 Blood Pressure 98/54 L Pulse Oximetry 96 02/22/18 04:00 02/22/18 05:00 02/22/18 06:00 Temperature Pulse Rate 68 66 87 Respiratory Rate Blood Pressure Pulse Oximetry 02/22/18 07:20 02/22/18 08:36 02/22/18 08:39 Temperature 99.3 F Pulse Rate 71 71 Respiratory Rate 16 21 Blood Pressure 84/54 L Pulse Oximetry 95 93 L 93 L 02/22/18 08:50 Temperature Pulse Rate Respiratory Rate 18 Blood Pressure Pulse Oximetry Intake & Output 02/21/18 02/22/18 02/22/18 18:59 06:59 18:59 Intake Total 1960 / 1960 480 / 480 Output Total 100 / 100 150 / 150 Balance 1860 / 1860 330 / 330 Weight 72 kg Intake: IV 1000 / 1000 NS Inj 1,000 ML @ 1000 mls/hr 1000 / 1000 IV.SIG .Q1H ONE Rx#:[id number] Oral 960 / 960 480 / 480 Output: Urine 100 / 100 150 / 150 Other: Mode Setting Left Groin Continuous Continuous Continuous # Voids 3 3 Date of Last Bowel Movement 02/18/18 02/18/18 # Bowel Movements 0 0 Exam: B LE warm w/ biphasic distal pulses L groin S/NT w/o hematoma or swelling Resp even and clear RRR Abdomen S/NT Laboratory Results - last 24 hr 02/21/18 16:07 POC Glucose 206 H Assessment and Plan - Assessment (1) PAD (peripheral artery disease) Code(s): I73.9 - Peripheral vascular disease, unspecified Status: Acute - Plan POD#3 s/p L groin reconstruction Pt looks good Pain controlled Asymptomatic hypotension- Hx of Plan Pt clear for d/c to [facility] Arranged out pt f/u for POD 7 - to remove wound vac from L groin D/C instructed discussed and reviewed w/ pt Yari Winter NP [facility] [phone] Discharge Planning: Today w/ wound vac intact
--- NOTE | 2018-02-22 10:54 | P.DS ---
Discharge Summary - Admission Date 02/19/18 06:02 - Admission Diagnosis (1) PAD (peripheral artery disease) - Discharge Date 02/22/18 - Discharge Diagnosis (1) PAD (peripheral artery disease) Status: Acute - Summary Brief History from admission: 67 yo female with L LE rest pain and PAD. Presents for groin reconstruction and angiogram. No changes in health that would preclude OR today. Procedure: L groin reconstruction Significant Findings: B LE warm w/ biphasic distal pulses L groin S/NT w/o hematoma or swelling Resp even and clear RRR Abdomen S/NT Abnormal Lab Results 02/21/18 16:07 POC Glucose 206 H Hospital Course: 67 yo female with L LE rest pain and PAD. Presents for groin reconstruction and angiogram. Pt S/P L groin reconstruction Successful revascularization as pt is w/o rest pain and has biphasic distal pulses Pt w/ asymptomatic hypotension- reports hx of when B/P is taken in her arms- current b/p at d/c 113/51 (right calf) Pt w/o dizziness, weakness, chest pain, abdominal pain pain controlled Pt voiding w/o difficulty Pt clear for D/C from a vascular standpoint E- forcse reviewed- Pt may continue Hydrocodone (out pt regimen for pain control ) Arranged out pt f/u for POD 7 (02/26/18 at 12:00)- wound vac removal - Discharge Instructions Any questions or concerns: Call [facility] V[facility] Surgery at [facility] [phone] Discharge Plan - Discharge Disposition Patient Disposition: 03 Discharge to SNF - Discharge Condition Condition: Good - Discharge Order Discharge Orders: Discharge Order (Routine); Ordered 02/22/18 Ordered By: Yari Winter - Physicians Team Attending Provider: Jason Boone Other Providers: Benito Burch ; ; Brandon Flood MD - Rxs /Orders / Referrals /Forms Prescriptions: New aspirin 81 mg Tablet,Chewable 81 mg PO DAILY RF: 0 Continue acetaminophen [Tylenol] 325 mg Capsule 650 mg PO Q4H PRN (Reason: Pain) atorvastatin 20 mg Tablet 20 mg PO DAILY bisacodyl 5 mg Tablet,Delayed Release (Dr/Ec) 5 mg PO DAILY calcipotriene 0.005 % Cream 1 applic TOPICAL DAILY calcium carbonate-vitamin D3 [Calcium 500 + D] 500 mg(1,250mg) -200 unit Tablet 1 tab PO BID citalopram [Celexa] 10 mg Tablet 10 mg PO DAILY clobetasol 0.025 % Cream 1 applic TOPICAL BID PRN (Reason: Itching) clopidogrel [Plavix] 75 mg Tablet 75 mg PO DAILY diphenhydramine HCl [Benadryl Itch Stopping] 2 % Gel 1 applic TOPICAL TID-QID PRN (Reason: Itching) fenofibrate micronized 200 mg Capsule 200 mg PO DAILY furosemide 20 mg Tablet 20 mg PO DAILY gabapentin 300 mg Capsule 300 mg PO BID hydrocodone-acetaminophen 5-325 mg Tablet 1 tab PO Q8HR PRN (Reason: Pain) levetiracetam 500 mg Tablet 500 mg PO BID levothyroxine 25 mcg Tablet 25 mcg PO DAILY loratadine 10 mg Capsule 10 mg PO DAILY lorazepam 0.5 mg Tablet 0.5 mg PO BID PRN (Reason: Anxiety) polyethylene glycol 3350 [Miralax] 17 gram Powder In Packet 17 g PO DAILY potassium chloride 10 mEq Capsule, Extended Release 10 meq PO DAILY tizanidine 4 mg Capsule 4 mg PO BID zolpidem [Ambien] 5 mg Tablet 5 mg PO HS Referrals: Dilia Alejandro MD [Other] - See Instructions Jason Boone MD [Physician] - See Instructions (Follow up on 02/26/18 at 12: 00 for L groin wound vac removal ) - Discharge Instructions Patient Printed Instructions: Peripheral Vascular Disease (GEN) - Post Discharge Care Plan Care Plan Goals: Discharge Care Plan Goals After Vascular Surgery Contact: Please call [phone] if you have any problems or have questions regarding your hospitalization. Directions to Meet Your Goals: 1. Diet: * You may resume a regular diet as you were eating at home before your admission. 2. Activity: * Increase your activity level gradually. * Keep surgical extremities elevated when at rest. This will help limit the swelling, bruising and discomfort normally present after surgery. * Walking is a good form of light exercise. Go for a walk at least 3 times per day. * No heavy lifting (lifting over 10 pounds) for at least 4 weeks from surgery. * Check with your surgeon to ensure when you are cleared for heavy lifting and full-intensity exercising. * Your strength will gradually improve. * No driving or operating motorized vehicles while on prescription pain medications. * No swimming until wounds fully healed. * Return to work when cleared by MD/[facility]. 3. Bathing: Shower daily. * Gently let soap and water run over your incision and pat dry. Do not scrub the incision/wound. * Don't soak in a bath or submerge your incision in water until your incision is healed and evaluated by your physician at follow-up (usually two weeks). 4. Wound Care: INCISION SITE CARE INSTRUCTIONS: * You may leave your incision open to air. * Keep your incision clean and dry, unless showering. See above. * Moisture near the incision will cause the wound to open. * No lotions, creams, ointments, or powders on incisions until they are well- healed. * If you have glue over the incision(s), allow it to fall off naturally in 1-3 weeks * If present, shiraz/sutures will be removed 2-3 weeks after surgery during your follow-up clinic visit. * If present, change dressing/bandage when soaked/soiled as needed. * Observe wound daily, checking for signs and symptoms of infection including: foul odor, drainage from the incision, increased redness, increased pain at incision, or increased swelling. 5. Pain Control: Expect post-operative pain for 1-4 weeks after surgery. Your pain will improve gradually. * You may have been provided with a prescription for pain medication. Please take as directed, and be aware of side effects such as drowsiness, constipation and mild stomach discomfort. Pain pills on an empty stomach can cause nausea , so eat a small amount of food, such as crackers, when taking these pills. * Take [id number] stool softeners (Colace or Senna) with your prescribed pain medication. * Acetaminophen (500mg every 6 hours) or Ibuprofen (400mg every 6 hours) may be used in conjunction with narcotics to relieve pain. DO NOT take more than 4 grams (4000mg) of Tylenol in one day, as this can harm your liver. DO NOT take ibuprofen IF: you have an allergy to non-steroidal anti-inflammatory medications, you are taking Coumadin, you have been told you have kidney problems, or you have a history of gastrointestinal bleeding or ulcers. DO NOT take more than 3.2 grams (3200mg) of ibuprofen in one day. * You may also find relief from using heat packs or pads or ice packs. 6. Bowel Regimen for Constipation: * People who undergo surgery are likely to develop post-operative constipation. Exposure to narcotics and changes in diet, fluid intake, and physical activity are known contributors to constipation. We recommend routine stool softeners and/ or laxatives after surgery for most patients. Start by taking one medication. You can increase as directed to relieve constipation. Stop taking these medications if you develop diarrhea. These medications are available over-the- counter and do not require a prescription: * Colace is a stool softener. We recommend starting at 100mg orally twice per day as needed for soft stools and increase to a maximum of 200mg twice daily as needed. * Senna is a laxative that works by keeping water in the intestine to help stool move along the intestinal tract. Take 1 tablet daily as needed for soft stool and increase to a maximum of 2 tablets twice daily as needed. Take Senna with two full glasses of water each time. * Miralax, Dulcolax and Milk of Magnesia are other curu-cdr-paobowb laxatives that may be used as needed for post-operative constipation. * Drink 6-8 glasses of water per day. * Consume 15-30g of fiber per day: * Metamucil powder, 1-2 tablespoons 1-2 times/day OR Benefiber powder, 2 tablespoons 4 times/day. * Avoid straining. 7. Follow-Up: Do Not miss your follow-up appointment. Keep up with all your appointments and yearly check ups If you have any of the following symptoms please call [phone] immediately: Excessive swelling of the affected extremity Sudden onset of severe or unusual pain in the affected extremity Pain that gets worse or is not relieved by medication Warmth, redness, or swelling in the skin around the wound Foul drainage from incision Extensive bruising or discoloration Wound that opens up or pulls apart Fever above 101.5F or shaking chills Nausea or vomiting Severe diarrhea or severe constipation Dizziness or fainting Chest pain, shortness of breath, or increased work of breathing Weight gain >10 lbs over 3-4 days Inability to urinate for more than 6 hours Cloudy or foul smelling urine Urge to urinate more often than usual Symptoms to Report to Your Doctor: Temperature 101F or higher Pain uncontrolled by medication Drainage or foul odor from incision Extensive bruising or discoloration Chest pain Shortness of breath Nausea, vomiting or dizziness Call 911: Call 911 right away if you have: Sudden onset of chest pain that is not relieved by medications Shortness of breath
[2018-02-22 13:50] VITALS: BP 105/65; RESP 20; TEMP 98.6
[2018-02-22] MEDS: Furosemide 20 MG Tablet PO SCH (13:50)
[2018-02-22] MEDS: Loratadine 10 MG Tablet PO SCH (13:50)
[2018-02-22] MEDS: Enoxaparin Inj 30 MG/0.3 ML Syringe SQ SCH (13:51)
[2018-02-22 14:27] VITALS: PULSE 74
== END 2018-02-22 15:45 ==
LOC: HSDI 06:02 → HCVI 18:42 → HCPC 02-20 11:35
PROVIDERS: ADMIT Surgery; ATTEND Surgery